=== PATIENT | female | born 1940 | race Caucasian/White ===

== ENCOUNTER 2024-07-18 10:41 | Inpatient (IN) | payer MEDICARE, OTHER ==
[2024-07-18] MEDS ORDERED: Sodium Chloride 0.9% 10 ML Syringe FLUSH PRN (11:10)
[2024-07-18 11:37] LABS: BASOPHILS PERCENT AUTO 0.1 % (0.0-1.0); HEMATOCRIT 32.7 % (37.0-47.0); HEMOGLOBIN 10.8 gm/dl (12.0-16.0); IMMATURE GRAN PERCENT AUTO 0.7 % (0.0-0.4); LYMPHOCYTES PERCENT AUTO 6.8 % (24.0-44.0); MEAN CORPUSCULAR HEMOGLOBIN 26.9 pg (28.0-32.0); MEAN CORPUSCULAR VOLUME 81.5 fl (83.0-99.0); MEAN PLATELET VOLUME 8.6 fl (9.4-12.3); MONOCYTES ABSOLUTE AUTO 0.9 K/mm3 (0.0-0.8); NEUTROPHILS ABSOLUTE AUTO 12.6 K/mm3 (1.8-7.7); NEUTROPHILS PERCENT AUTO 86.4 % (41.0-71.0); PLATELET COUNT,PLT 604 K/mm3 (150-400); RED BLOOD CELL COUNT 4.01 M/mm3 (4.10-5.30); WHITE BLOOD CELL COUNT,WBC 14.56 K/mm3 (3.9-11.3)
[2024-07-18] MEDS: Lactated Ringers 1,000 ML IV SCH (11:55)
[2024-07-18 12:08] LABS: LACTIC ACID 1.9 mmol/L (0.4-2.0)
[2024-07-18 12:13] LABS: A/G RATIO 0.6 (1-2); ALBUMIN 2.7 g/dl (3.4-5.0); ANION GAP 10.4 (5-15); BILIRUBIN TOTAL 0.4 mg/dL (0.2-1.0); BUN/CREATININE RATIO 24.5 (14-18); C-REACTIVE PROTEIN 5.82 mg/dL (<0.30); EST CRCL DRUG DOSING (CG) 21.09 mL/min; MAGNESIUM 1.5 mg/dL (1.8-2.4); POTASSIUM,K 3.4 mEq/L (3.5-5.1); PROTEIN TOTAL,TP 7.4 g/dl (6.4-8.2)
[2024-07-18 12:19] LABS: CALCIUM 13.9 mg/dL (8.5-10.1)
[2024-07-18] MEDS ORDERED: 50% Dextrose in Water 50 ML Syringe IVPUSH PRN (13:53)
[2024-07-18] MEDS ORDERED: Acetaminophen 325 MG Tab PO PRN (13:56)
[2024-07-18] MEDS ORDERED: Melatonin 3 MG Tab PO PRN (13:56)
[2024-07-18] MEDS ORDERED: oxyCODONE 5 MG Tab PO PRN (13:56)
[2024-07-18] MEDS ORDERED: Sennosides/Docusate Sodium 50-8.6 MG Tab PO PRN (13:56)
[2024-07-18] MEDS ORDERED: Labetalol 100 MG/20 ML MDV IVPUSH PRN (14:11)
[2024-07-18] MEDS ORDERED: hydrALAZINE 20 MG/ML SDV IVPUSH PRN (14:11)
[2024-07-18 14:22] LABS: IRON,FE 25 ug/dL (50-170); PERCENT FE SATURATION 9 % (20-55); TRANSFERRIN 221 mg/dL (202-364)
[2024-07-18] MEDS: Diltiazem 125 MG in Sodium Chloride 0.9% 100 ML IV SCH (14:28)
[2024-07-18 14:50] LABS: TOTAL IRON BINDING CAPACITY 276 ug/dL (100-400)
[2024-07-18] MEDS: Metoprolol Tartrate 25 MG Tab PO SCH (14:50)
[2024-07-18] MEDS: Potassium Chloride 20 MEQ Tab.ER PO ONE (14:50)
[2024-07-18] MEDS: cefTRIAXone 1 GM Vial IVPUSH SCH (14:52)
[2024-07-18] MEDS: Heparin Sodium 5,000 Units/ML Vial IVPUSH ONE ×2 (15:01→20:28)
[2024-07-18] MEDS: Heparin Sodium/D5W 250 ML IV SCH (15:03)
[2024-07-18] MEDS: Magnesium Sulf/Wat 4 GM/50 mL 4 GM in Premix Bag 1 BAG IV ONE (15:05)
[2024-07-18 16:10] LABS: HEMOGLOBIN A1C 6.8 %
[2024-07-18] MEDS: Insulin Lispro 100 Unit/ML 3 ML KwikPen SUBCUT SCH (17:44)
[2024-07-18] MEDS: atorvaSTATin 20 MG Tab PO SCH (19:43)
[2024-07-18] MEDS: Famotidine 20 MG/2 ML SDV IVPUSH SCH (19:44)
[2024-07-19 01:29] LABS: APPEARANCE,URINE CLEAR (Clear); BILIRUBIN,URINE NEGATIVE (Negative); COLOR,URINE YELLOW (Yellow); GLUCOSE,URINE NEGATIVE (Negative); KETONES,URINE NEGATIVE (Negative); LEUKOCYTE ESTERASE,URINE NEGATIVE (Negative); NITRITE,URINE NEGATIVE (Negative); OCCULT BLOOD,URINE NEGATIVE (Negative); PROTEIN,URINE 1+ (Negative); UROBILINOGEN,URINE 0.2 (0.2-1.0)
[2024-07-19 01:42] LABS: RBC,URINE 0-5 /hpf (0-5)
[2024-07-19 01:43] LABS: CALCIUM OXALATE CRYSTALS,URINE MANY; SQUAMOUS EPITHELIAL CELLS,UR 0-5 /hpf (0-5); WBC,URINE 0-5 /hpf (0-5)
[2024-07-19 01:44] LABS: BACTERIA,URINE FEW /hpf (FEW); HYALINE CASTS,URINE 40-50 /lpf (0-5); MUCUS,URINE NOT SEEN /hpf (FEW)
[2024-07-19] MEDS: Ondansetron 4 MG/2 ML SDV IV PRN (07:31)
[2024-07-19 08:09] LABS: BASOPHILS PERCENT AUTO 0.1 % (0.0-1.0); EOSINOPHILS ABSOLUTE AUTO 0.1 K/mm3 (0.0-0.4); EOSINOPHILS PERCENT AUTO 0.4 % (0.0-6.0); HEMATOCRIT 30.7 % (37.0-47.0); IMMATURE GRAN PERCENT AUTO 0.7 % (0.0-0.4); LYMPHOCYTES ABSOLUTE AUTO 1.4 K/mm3 (1.0-4.8); LYMPHOCYTES PERCENT AUTO 9.7 % (24.0-44.0); MEAN CORPUSCULAR HEMOGLOBIN 26.9 pg (28.0-32.0); MEAN CORPUSCULAR HGB CONC 32.6 g/dl (32.0-36.0); MEAN CORPUSCULAR VOLUME 82.5 fl (83.0-99.0); MEAN PLATELET VOLUME 8.7 fl (9.4-12.3); MONOCYTES ABSOLUTE AUTO 1.1 K/mm3 (0.0-0.8); MONOCYTES PERCENT AUTO 7.5 % (0.0-8.0); NEUTROPHILS ABSOLUTE AUTO 11.4 K/mm3 (1.8-7.7); NEUTROPHILS PERCENT AUTO 81.6 % (41.0-71.0); PLATELET COUNT,PLT 474 K/mm3 (150-400); RED BLOOD CELL COUNT 3.72 M/mm3 (4.10-5.30); WHITE BLOOD CELL COUNT,WBC 13.98 K/mm3 (3.9-11.3)
[2024-07-19 08:51] LABS: A/G RATIO 0.6 (1-2); ALBUMIN 2.2 g/dl (3.4-5.0); ANION GAP 10.6 (5-15); BILIRUBIN TOTAL 0.3 mg/dL (0.2-1.0); BUN/CREATININE RATIO 25.9 (14-18); C-REACTIVE PROTEIN 4.29 mg/dL (<0.30); CREATININE 1.7 mg/dL (0.55-1.02); EST CRCL DRUG DOSING (CG) 24.81 mL/min; MAGNESIUM 2.1 mg/dL (1.8-2.4); PHOSPHORUS 2.7 mg/dL (2.6-4.7); POTASSIUM,K 3.6 mEq/L (3.5-5.1); PROTEIN TOTAL,TP 6.1 g/dl (6.4-8.2); TSH 0.186 uIU/mL (0.358-3.74); VITAMIN D,25-HYDROXY 24.8 ng/ml (30.0-100.0)
[2024-07-19] MEDS: Heparin Sodium 5,000 Units/ML Vial IVPUSH ONE (08:55)
[2024-07-19] MEDS: Brimonidine 0.2% Ophth Soln 5 ML Bottle EYEBOTH SCH ×2 (08:55→22:14)
[2024-07-19 09:11] LABS: T4 FREE 1.74 ng/dL (0.76-1.46)
[2024-07-19] MEDS ORDERED: amLODIPine 5 MG Tab PO ONE (10:11)
[2024-07-19] MEDS: Timolol Maleate 0.5% Ophth Soln 5 ML Bottle EYEBOTH SCH (11:31)
[2024-07-19] MEDS: Sodium Chloride 0.9% 500 ML IV ONE ×2 (11:39→12:35)
[2024-07-19] MEDS: Sodium Chloride 0.9% 1,000 ML IV SCH (13:03)
[2024-07-19] MEDS ORDERED: Acetaminophen 325 MG Tab PO PRN (13:11)
[2024-07-19] MEDS ORDERED: Latanoprost 0.005% Ophth Soln 2.5 ML Bottle EYEBOTH SCH (21:00)
[2024-07-19] MEDS: Apixaban 2.5 MG Tab PO SCH (22:11)
[2024-07-19] MEDS: Latanoprost 0.005% Ophth Soln 2.5 ML Bottle EYEBOTH SCH (22:14)
[2024-07-20] MEDS: Albuterol/Ipratropium 3.0-0.5 MG/3 ML Neb Soln NEB PRN (02:28)
[2024-07-20 06:22] LABS: BASOPHILS PERCENT AUTO 0.2 % (0.0-1.0); EOSINOPHILS ABSOLUTE AUTO 0.1 K/mm3 (0.0-0.4); EOSINOPHILS PERCENT AUTO 1.2 % (0.0-6.0); HEMATOCRIT 26.5 % (37.0-47.0); HEMOGLOBIN 8.7 gm/dl (12.0-16.0); IMMATURE GRAN ABSOLUTE AUTO 0.09 K/mm3 (0.00-0.05); IMMATURE GRAN PERCENT AUTO 0.9 % (0.0-0.4); LYMPHOCYTES PERCENT AUTO 9.7 % (24.0-44.0); MEAN CORPUSCULAR HEMOGLOBIN 26.6 pg (28.0-32.0); MEAN CORPUSCULAR HGB CONC 32.8 g/dl (32.0-36.0); MEAN PLATELET VOLUME 8.7 fl (9.4-12.3); MONOCYTES ABSOLUTE AUTO 0.9 K/mm3 (0.0-0.8); NEUTROPHILS ABSOLUTE AUTO 7.8 K/mm3 (1.8-7.7); RED BLOOD CELL COUNT 3.27 M/mm3 (4.10-5.30); WHITE BLOOD CELL COUNT,WBC 9.92 K/mm3 (3.9-11.3)
[2024-07-20 06:24] LABS: PLATELET COUNT,PLT 378 K/mm3 (150-400)
[2024-07-20 06:40] LABS: ANION GAP 10.6 (5-15); BUN/CREATININE RATIO 28.3 (14-18); CALCIUM 10.9 mg/dL (8.5-10.1); CREATININE 1.8 mg/dL (0.55-1.02); EST CRCL DRUG DOSING (CG) 23.43 mL/min; POTASSIUM,K 3.6 mEq/L (3.5-5.1)
[2024-07-20] MEDS: Furosemide 20 MG/2 ML VIAL IVPUSH ONE (08:02)
[2024-07-20] MEDS: Aspirin 81 MG Tab.EC PO SCH (09:04)
[2024-07-20 18:43] LABS: APPEARANCE,URINE CLEAR (Clear); BILIRUBIN,URINE NEGATIVE (Negative); COLOR,URINE YELLOW (Yellow); GLUCOSE,URINE NEGATIVE (Negative); KETONES,URINE NEGATIVE (Negative); LEUKOCYTE ESTERASE,URINE NEGATIVE (Negative); NITRITE,URINE NEGATIVE (Negative); OCCULT BLOOD,URINE NEGATIVE (Negative); PROTEIN,URINE 1+ (Negative); UROBILINOGEN,URINE 0.2 (0.2-1.0)
[2024-07-20 20:21] LABS: BACTERIA,URINE FEW /hpf (FEW); MUCUS,URINE FEW /hpf (FEW); RBC,URINE 0-5 /hpf (0-5); SQUAMOUS EPITHELIAL CELLS,UR 0-5 /hpf (0-5); WBC,URINE 0-5 /hpf (0-5)
[2024-07-20 20:42] LABS: INTACT PTH 17 pg/mL (15-65)
[2024-07-20] MEDS: Metoprolol Tartrate 25 MG Tab PO SCH (21:33)
[2024-07-21] MEDS: Metoprolol Tartrate 5 MG/5 ML SDV IVPUSH PRN (00:26)
[2024-07-21 04:59] LABS: BASOPHILS PERCENT AUTO 0.2 % (0.0-1.0); EOSINOPHILS ABSOLUTE AUTO 0.2 K/mm3 (0.0-0.4); EOSINOPHILS PERCENT AUTO 1.6 % (0.0-6.0); HEMATOCRIT 26.7 % (37.0-47.0); HEMOGLOBIN 8.8 gm/dl (12.0-16.0); IMMATURE GRAN ABSOLUTE AUTO 0.09 K/mm3 (0.00-0.05); IMMATURE GRAN PERCENT AUTO 0.9 % (0.0-0.4); LYMPHOCYTES ABSOLUTE AUTO 0.9 K/mm3 (1.0-4.8); LYMPHOCYTES PERCENT AUTO 8.7 % (24.0-44.0); MEAN CORPUSCULAR HEMOGLOBIN 26.9 pg (28.0-32.0); MEAN CORPUSCULAR VOLUME 81.7 fl (83.0-99.0); MONOCYTES ABSOLUTE AUTO 1.1 K/mm3 (0.0-0.8); MONOCYTES PERCENT AUTO 10.5 % (0.0-8.0); NEUTROPHILS PERCENT AUTO 78.1 % (41.0-71.0); PLATELET COUNT,PLT 375 K/mm3 (150-400); RED BLOOD CELL COUNT 3.27 M/mm3 (4.10-5.30); WHITE BLOOD CELL COUNT,WBC 10.22 K/mm3 (3.9-11.3)
[2024-07-21 05:19] LABS: A/G RATIO 0.5 (1-2); ALBUMIN 1.9 g/dl (3.4-5.0); ANION GAP 9.7 (5-15); BILIRUBIN TOTAL 0.3 mg/dL (0.2-1.0); BUN/CREATININE RATIO 28.9 (14-18); CALCIUM 10.3 mg/dL (8.5-10.1); CREATININE 1.8 mg/dL (0.55-1.02); EST CRCL DRUG DOSING (CG) 23.43 mL/min; POTASSIUM,K 3.7 mEq/L (3.5-5.1); PROTEIN TOTAL,TP 5.7 g/dl (6.4-8.2)
[2024-07-21] MEDS: Diltiazem 25 MG/5 ML SDV IVPUSH ONE (08:19)
[2024-07-21] MEDS: Diltiazem IR 30 MG Tab PO SCH ×2 (09:08→16:50)
[2024-07-21] MEDS: Calcium Carbonate 500 MG Tab.Chew PO PRN (17:49)
[2024-07-22 04:46] LABS: THYROID STIM IMMUN <0.10 IU/L (<=0.54)
[2024-07-22 06:16] LABS: A/G RATIO 0.5 (1-2); ANION GAP 10.7 (5-15); BILIRUBIN TOTAL 0.4 mg/dL (0.2-1.0); BUN/CREATININE RATIO 31.9 (14-18); CALCIUM 10.4 mg/dL (8.5-10.1); CREATININE 1.6 mg/dL (0.55-1.02); EST CRCL DRUG DOSING (CG) 26.36 mL/min; POTASSIUM,K 3.7 mEq/L (3.5-5.1); PROTEIN TOTAL,TP 5.9 g/dl (6.4-8.2)
[2024-07-22] MEDS: Diltiazem 300 MG Cap.CD PO SCH (08:44)
[2024-07-22] MEDS: Pantoprazole 40 MG Tab.CR PO SCH (09:43)
[2024-07-22] MEDS: Metoprolol Tartrate 5 MG/5 ML SDV IVPUSH ONE (18:12)
[2024-07-22] MEDS: Melatonin 3 MG Tab PO SCH (20:17)
[2024-07-23] MEDS: Diltiazem IR 30 MG Tab PO ONE (00:27)
[2024-07-23] MEDS ORDERED: Ondansetron 4 MG/2 ML SDV IVPUSH PRN (07:19)
[2024-07-24] MEDS: traZODone 50 MG Tab PO SCH (20:53)
[2024-07-25] MEDS: Furosemide 20 MG Tab PO SCH (10:33)
[2024-07-27] MEDS: Sodium Ferric Gluconate Cmplex 125 MG in Sodium Chloride 0.9% 100 ML IV SCH (09:06)
[2024-07-27] MEDS: Sodium Chloride 0.9% 250 ML IV SCH (09:06)
[2024-07-27] MEDS: Tiotropium BR/Olodaterol HCL 4 GM Inhalation Spray 2.5mcg/1 dose; 10 doses INH SCH (13:19)
[2024-07-27 13:51] LABS: BICARBONATE,ARTERIAL 18.8 meq/L (22.0-26.0); PCO2 ARTERIAL 26.7 mmHg (35.0-45.0)
[2024-07-27 15:31] LABS: BASOPHILS PERCENT AUTO 0.2 % (0.0-1.0); HEMATOCRIT 28.7 % (37.0-47.0); HEMOGLOBIN 9.1 gm/dl (12.0-16.0); IMMATURE GRAN ABSOLUTE AUTO 0.17 K/mm3 (0.00-0.05); IMMATURE GRAN PERCENT AUTO 0.7 % (0.0-0.4); LYMPHOCYTES ABSOLUTE AUTO 0.9 K/mm3 (1.0-4.8); LYMPHOCYTES PERCENT AUTO 3.8 % (24.0-44.0); MEAN CORPUSCULAR HGB CONC 31.7 g/dl (32.0-36.0); MONOCYTES ABSOLUTE AUTO 1.7 K/mm3 (0.0-0.8); MONOCYTES PERCENT AUTO 6.8 % (0.0-8.0); NEUTROPHILS ABSOLUTE AUTO 21.7 K/mm3 (1.8-7.7); NEUTROPHILS PERCENT AUTO 88.5 % (41.0-71.0); NRBC ABSOLUTE 0.11 (0.00-0.02); NRBC PERCENT 0.4 % (0.0-0.2); PLATELET COUNT,PLT 655 K/mm3 (150-400); WHITE BLOOD CELL COUNT,WBC 24.49 K/mm3 (3.9-11.3)
[2024-07-27 15:50] LABS: A/G RATIO 0.3 (1-2); ALBUMIN 1.7 g/dl (3.4-5.0); ANION GAP 17.3 (5-15); BILIRUBIN TOTAL 0.4 mg/dL (0.2-1.0); BUN/CREATININE RATIO 23.5 (14-18); CALCIUM 10.4 mg/dL (8.5-10.1); EST CRCL DRUG DOSING (CG) 9.17 mL/min; MAGNESIUM 2.4 mg/dL (1.8-2.4); PHOSPHORUS 5.7 mg/dL (2.6-4.7); PROTEIN TOTAL,TP 6.9 g/dl (6.4-8.2)
[2024-07-27 16:15] LABS: CREATININE 4.6 mg/dL (0.55-1.02); POTASSIUM,K 5.3 mEq/L (3.5-5.1)
[2024-07-27] MEDS: Sodium Chloride 0.9% 1,000 ML IV ONE (16:40)
[2024-07-27] MEDS: Piperacillin/Tazobactam 4.5 GM in Sodium Chloride 0.9% 100 ML IV ONE (16:47)
[2024-07-27] MEDS: Sodium Chloride 0.9% 1,000 ML ONE (16:48)
[2024-07-27] MEDS: 50% Dextrose in Water 50 ML Syringe IVPUSH ONE (17:15)
[2024-07-27] MEDS ORDERED: Sodium Chloride 0.9% 1,000 ML IV SCH ×2 (17:15→21:00)
[2024-07-27] MEDS: Insulin Regular, Human 100 Units/ML 10 ML Vial IV ONE (17:18)
[2024-07-27] MEDS: Norepinephrine 4 MG/4 ML SDV ONE (17:34)
[2024-07-27] MEDS: Vasopressin 100 UNIT in Dextrose 5% in Water 245 ML IV SCH (17:40)
[2024-07-27] MEDS: Insulin Regular, Human 100 Units/ML 3 ML Vial IV ONE (17:49)
[2024-07-27] MEDS: Insulin Lispro 100 Unit/ML 3 ML KwikPen SUBCUT SCH (17:49)
[2024-07-27] MEDS: VANCOmycin 1.5 GM/300 ML 1.5 GM in Premix Bag 1 BAG IV ONE (17:50)
[2024-07-27] MEDS: Sodium Bicarbonate 8.4% 50 MEQ/50 ML SDV ONE (17:50)
[2024-07-27 18:24] LABS: LACTIC ACID 3.3 mmol/L (0.4-2.0)
[2024-07-27] MEDS: Sodium Bicarbonate 8.4% 50 MEQ/50 ML Syringe IVPUSH STA (18:25)
[2024-07-27] MEDS: Hydrocortisone Sodium Succinate 100 MG/2 ML SDV IVPUSH SCH (18:35)
[2024-07-27 19:21] LABS: APPEARANCE,URINE CLEAR (Clear); BILIRUBIN,URINE NEGATIVE (Negative); COLOR,URINE YELLOW (Yellow); GLUCOSE,URINE NEGATIVE (Negative); KETONES,URINE NEGATIVE (Negative); LEUKOCYTE ESTERASE,URINE NEGATIVE (Negative); NITRITE,URINE NEGATIVE (Negative); OCCULT BLOOD,URINE NEGATIVE (Negative); PH,URINE 5.5 (5.0-8.0); PROTEIN,URINE 1+ (Negative); UROBILINOGEN,URINE 0.2 (0.2-1.0)
[2024-07-27 19:40] LABS: BACTERIA,URINE MODERATE /hpf (FEW); MUCUS,URINE FEW /hpf (FEW); RBC,URINE 0-5 /hpf (0-5); WBC,URINE 0-5 /hpf (0-5)
[2024-07-27 20:57] LABS: LACTIC ACID 1.8 mmol/L (0.4-2.0)
[2024-07-27] MEDS: Famotidine 20 MG/2 ML SDV IVPUSH SCH (21:06)
[2024-07-27] MEDS: Piperacillin/Tazobactam 4.5 GM in Sodium Chloride 0.9% 100 ML IV SCH (21:07)
[2024-07-28 04:45] LABS: BASOPHILS PERCENT AUTO 0.1 % (0.0-1.0); HEMOGLOBIN 8.4 gm/dl (12.0-16.0); IMMATURE GRAN ABSOLUTE AUTO 0.26 K/mm3 (0.00-0.05); LYMPHOCYTES ABSOLUTE AUTO 0.9 K/mm3 (1.0-4.8); LYMPHOCYTES PERCENT AUTO 3.6 % (24.0-44.0); MEAN CORPUSCULAR HEMOGLOBIN 26.3 pg (28.0-32.0); MEAN CORPUSCULAR HGB CONC 32.3 g/dl (32.0-36.0); MEAN CORPUSCULAR VOLUME 81.5 fl (83.0-99.0); MEAN PLATELET VOLUME 9.1 fl (9.4-12.3); MONOCYTES ABSOLUTE AUTO 1.1 K/mm3 (0.0-0.8); MONOCYTES PERCENT AUTO 4.3 % (0.0-8.0); NEUTROPHILS ABSOLUTE AUTO 22.9 K/mm3 (1.8-7.7); NRBC ABSOLUTE 0.07 (0.00-0.02); NRBC PERCENT 0.3 % (0.0-0.2); PLATELET COUNT,PLT 588 K/mm3 (150-400); RED BLOOD CELL COUNT 3.19 M/mm3 (4.10-5.30); WHITE BLOOD CELL COUNT,WBC 25.15 K/mm3 (3.9-11.3)
[2024-07-28 05:43] LABS: ANION GAP 20.2 (5-15); BLOOD UREA NITROGEN,BUN 116 mg/dL (7-18); BUN/CREATININE RATIO 25.2 (14-18); C-REACTIVE PROTEIN > 25.00 mg/dL (<0.30); CALCIUM 10.2 mg/dL (8.5-10.1); CARBON DIOXIDE,CO2 19 mEq/L (21-32); CHLORIDE,CL 102 mEq/L (98-107); CREATININE 4.6 mg/dL (0.55-1.02); EST CRCL DRUG DOSING (CG) 9.17 mL/min; ESTIMATED GFR 9 mL/min (>60); GLUCOSE RANDOM 170 mg/dL (70-99); MAGNESIUM 2.6 mg/dL (1.8-2.4); PHOSPHORUS 6.4 mg/dL (2.6-4.7); POTASSIUM,K 5.2 mEq/L (3.5-5.1); SODIUM,NA 136 mEq/L (136-145); VANCOMYCIN RANDOM 23.4 ug/mL
[2024-07-28 06:53] LABS: SLIDE REVIEW ABNORMAL SMEAR
[2024-07-28] MEDS: Insulin Regular, Human 100 Units/ML 10 ML Vial IV ONE (09:36)
[2024-07-28] MEDS: 50% Dextrose in Water 50 ML Syringe IVPUSH ONE (09:38)
[2024-07-28] MEDS: Vasopressin 100 UNITS in Dextrose 5% in Water 245 ML IV SCH (12:22)
[2024-07-28] MEDS ORDERED: VANCOmycin 500 MG/100 ML 500 MG in Premix Bag 1 BAG IV SCH (18:00)
== END 2024-07-28 13:50 | DRG 682 ==
LOC: JD.ED 10:41 → JD.MS 12:38 → UNDOADMIN 12:38 → JD.ICU 13:42 → JD.MS 14:24 → JD.ICU 14:25 → JD.MS 07-24 18:55 → JD.ICU 07-27 17:12
PROVIDERS: ADMIT Family Medicine; ATTEND Student in an Organized Health Care Education/Training Program
PROC: 4A033R1 Measurement of Arterial Saturation, Peripheral, Percutaneous Approach (ICD-10-PCS; principal; 2024-07-18)
PROC: 3E03329 Introduction of Other Anti-infective into Peripheral Vein, Percutaneous Approach (ICD-10-PCS; 2024-07-19)
PROC: 5A09457 Assistance with Respiratory Ventilation, 24-96 Consecutive Hours, Continuous Positive Airway Pressure (ICD-10-PCS; 2024-07-26)
PROC: 3E053XZ Introduction of Vasopressor into Peripheral Artery, Percutaneous Approach (ICD-10-PCS; 2024-07-28)
DX: N17.9 Acute kidney failure, unspecified (principal); A41.9 Sepsis, unspecified organism; I10 Essential (primary) hypertension; J18.9 Pneumonia, unspecified organism; R65.21 Severe sepsis with septic shock; G93.41 Metabolic encephalopathy; J96.01 Acute respiratory failure with hypoxia; I50.31 Acute diastolic (congestive) heart failure; I13.0 Hypertensive heart and chronic kidney disease with heart failure and stage 1 through stage 4 chronic kidney disease, or unspecified chronic kidney disease; J44.0 Chronic obstructive pulmonary disease with (acute) lower respiratory infection; I47.10 Supraventricular tachycardia, unspecified; I48.91 Unspecified atrial fibrillation; N18.4 Chronic kidney disease, stage 4 (severe); E87.6 Hypokalemia; A08.4 Viral intestinal infection, unspecified; H40.9 Unspecified glaucoma; H91.90 Unspecified hearing loss, unspecified ear; K21.9 Gastro-esophageal reflux disease without esophagitis; M19.90 Unspecified osteoarthritis, unspecified site; R79.89 Other specified abnormal findings of blood chemistry; E83.42 Hypomagnesemia; D75.839 Thrombocytosis, unspecified; E83.52 Hypercalcemia; E86.0 Dehydration; D50.9 Iron deficiency anemia, unspecified; Z66 Do not resuscitate; I27.20 Pulmonary hypertension, unspecified; E03.9 Hypothyroidism, unspecified; I65.23 Occlusion and stenosis of bilateral carotid arteries; E11.649 Type 2 diabetes mellitus with hypoglycemia without coma; E11.65 Type 2 diabetes mellitus with hyperglycemia; E83.39 Other disorders of phosphorus metabolism; I77.89 Other specified disorders of arteries and arterioles; F03.90 Unspecified dementia, unspecified severity, without behavioral disturbance, psychotic disturbance, mood disturbance, and anxiety; Z79.899 Other long term (current) drug therapy; Z98.890 Other specified postprocedural states; Z98.1 Arthrodesis status; Z86.73 Personal history of transient ischemic attack (TIA), and cerebral infarction without residual deficits
CPT/HCPCS: 36415; 70450; 71045; 80053; 83036; 83540; 83605; 83690; 83735; 83880; 83970; 84466; 84484; 85025; 85730; 86140; 87428; 93005; 99285; J7120; 36600; 51702; 80048; 80143; 80179; 80202; 81001; 82140; 82306; 82803; 82947; 84100; 84439; 84443; 84445; 87040; 93010; 93306; 93880; 93880-26; 94640; 94660; 94761; 94762; 97110-GP; 97116-GP; 97161-GP; 97530-GP; A9270-GY; J0696; J1644; J1720; J1815; J1815-GY; J1940; J2405; J2543; J2598; J2916; J3372; J3475; J3490; J7030; J7060; U0002